=== PATIENT | male | born 1960 | race Caucasian/White ===

== ENCOUNTER 2018-04-01 14:32 | Inpatient (IN) | payer BC ==
[2018-04-01] MEDS ORDERED: NA CHLORIDE 0.9% 2,000 ML ONE (15:07)
[2018-04-01] MEDS ORDERED: ACETAMINOPHEN 500 MG TAB ONE (15:07)
[2018-04-01] MEDS ORDERED: CEFTRIAXONE/SWI 1gm 1 GM/10 ML SYR ONE (15:07)
[2018-04-01] MEDS ORDERED: DIAZEPAM 10 MG/2 ML INJ SYRINGE ONE ×2 (15:09→16:59)
[2018-04-01 15:41] LABS: Absolute Lymphocytes (CBC) 0.9 K/uL (0.7-4.9); Absolute Monocytes 1.3 K/uL (0.1-1.3); Absolute Neutrophil 12.3 K/uL (1.8-8.0); Basophils % 0.7 % (0-1.3); Lymphocytes % 6.1 % (15.3-44.8); MCH 31.8 pg (27.0-35.0); MCV 93.2 fL (80-100); MPV 9.7 fL (7.6-11.3); RBC Red Blood Cell Count 4.61 M/uL (4.33-5.43)
[2018-04-01 15:43] LABS: Protime INR 1.08
[2018-04-01 16:34] LABS: ALT/SGPT 49 U/L (12-78); AST/SGOT 46 U/L (15-37); Alkaline Phosphatase 67 U/L (45-117); BUN Blood Urea Nitrogen 8 mg/dL (7-18); Bicarbonate 22 mmol/L (21-32); Bilirubin Direct 0.1 mg/dL (0-0.2); Bilirubin Total 0.5 mg/dL (0.2-1.0); Glucose Level 121 mg/dL (74-106); Magnesium 1.8 mg/dL (1.8-2.4); NT PRO-BNP 40 pg/mL (<125); Protein, Total 8.1 g/dL (6.4-8.2); Sodium Level 130 mmol/L (136-145); Troponin (Emerg Dept Use Only) < 0.02 ng/mL (0.0-0.045)
--- NOTE | 2018-04-01 16:37 | RAD REPORT ---
EXAM DESCRIPTION: RAD - Chest Single View - 04/01/2018 4:31 pm CLINICAL HISTORY: COUGH Chest pain. COMPARISON: CHEST SINGLE VIEW dated 02/15/2015 FINDINGS: Portable technique limits examination quality. The lungs are grossly clear. The heart is normal in size. No displaced fractures. IMPRESSION: No acute intrathoracic process suspected.
--- NOTE | 2018-04-01 17:09 | ER ---
Nurse's Notes [facility] Name: Raffi Tellez Age: 57 yrs Sex: Male : 1960 Arrival Date: 04/01/2018 Time: 14:39 Bed 6 Private MD: Diagnosis: Alcohol dependence with withdrawal, uncomplicated Presentation: 04/01 14:41 Presenting complaint: Patient states: I was at the [employer] game in [place] and started jl7 feeling real tired and just bad. My head started hurting real bad. I've been feeling bad for 3 days now. Denies chest pain, denies SOB. Transition of care: patient was not received from another setting of care. Onset of symptoms was March 29, 2018. Risk Assessment: Do you want to hurt yourself or someone else? Patient reports no desire to harm self or others. Initial Sepsis Screen: Does the patient meet any 2 criteria? RR > 20 per min. Temp <36.0*C (96.8*F)) or > 38.3*C (100.9*F). HR > 90 bpm. Yes Does the patient have a suspected source of infection? No. Patient's initial sepsis screen is negative. Care prior to arrival: None. 14:41 Method Of Arrival: Ambulatory [facility] 14:41 Acuity: CALI 3 jl7 Triage Assessment: 14:48 General: Appears uncomfortable, ill, Behavior is calm, cooperative, appropriate for [facility] age. Pain: Denies pain. EENT: No signs and/or symptoms were reported regarding the EENT system. Neuro: Level of Consciousness is awake, alert, obeys commands, Oriented to person, place, time, situation. Cardiovascular: Heart tones S1 S2 present Patient's skin is warm and dry. Rhythm is sinus tachycardia. Respiratory: Airway is patent Respiratory effort is even, unlabored, Respiratory pattern is symmetrical, tachypnea Breath sounds are clear bilaterally. Denies shortness of breath. GI: Abdomen is round non-distended, Reports nausea, Patient currently denies diarrhea, vomiting. : No signs and/or symptoms were reported regarding the genitourinary system. Derm: Skin is dry, Skin is normal, Skin temperature is hot. Musculoskeletal: No signs and/or symptoms reported regarding the musculoskeletal system. Historical: - Allergies: 14:48 PENICILLINS; jl7 - Home Meds: 14:48 losartan oral oral [Active]; jl7 - PMHx: 14:48 Hypertension; jl7 - Immunization history:: Adult Immunizations not up to date. - Social history:: Smoking status: Patient/guardian denies using tobacco, Patient uses alcohol, on a daily basis. admits to "couple of beers" a day. Patient/guardian denies using alcohol, street drugs, The patient lives with family. - Ebola Screening: : No symptoms or risks identified at this time. - Family history:: not pertinent. Screenin:00 Abuse screen: Denies threats or abuse. Denies injuries from another. Nutritional jl7 screening: No deficits noted. Tuberculosis screening: No symptoms or risk factors identified. Fall Risk IV access (20 points). Total Simms Fall Scale indicates No Risk (0-24 pts). Assessment: 15:00 General: See triage assessment. jl7 16:00 Reassessment: No changes from previously documented assessment. Patient and/or family jl7 updated on plan of care and expected duration. Pain level reassessed. Patient is alert, oriented x 3, equal unlabored respirations, skin warm/dry/pink. 17:00 Reassessment: Patient and/or family updated on plan of care and expected duration. Pain jl7 level reassessed. Patient is alert, oriented x 3, equal unlabored respirations, skin warm/dry/pink. Patient states feeling better. Vital Signs: 14:48 BP 157 / 84; Pulse 145; Resp 22 S; Temp 103.2(O); Pulse Ox 100% on R/A; Weight 113.4 kg jl7 (R); Height 5 ft. 9 in. (175.26 cm) (R); 16:00 BP 160 / 79; Pulse 130; Resp 16 S; Pulse Ox 96% on R/A; jl7 17:15 BP 141 / 82; Pulse 128; Resp 18 S; Pulse Ox 100% on R/A; jl7 17:40 BP 139 / 80; Pulse 127; Resp 18 S; Temp 101(O); Pulse Ox 100% on R/A; jl7 14:48 Body Mass Index 36.92 (113.40 kg, 175.26 cm) jl7 ED Course: 14:35 First set of blood cultures drawn by me. jb1 14:39 Patient arrived in ED. iw 14:40 Rosi Orlando MD is Attending Physician. ma2 14:41 Amy Del Rio RN is Primary Nurse. jl7 14:47 Triage completed. jl7 14:48 Arm band placed on right wrist. jl7 14:50 Second set of blood cultures drawn by me. jb1 14:56 EKG done, by ED staff, reviewed by Rosi Orlando MD. Initial lab(s) drawn, by me. jb1 Inserted saline lock: 20 gauge in right antecubital area, using aseptic technique. Blood collected. Inserted saline lock: 22 gauge in left antecubital area, using aseptic technique. 15:00 Patient has correct armband on for positive identification. Placed in gown. Bed in low jl7 position. Call light in reach. Side rails up X 1. air sampling and monitoring on. Pulse ox on. NIBP on. 16:27 X-ray completed. Portable x-ray completed in exam room. Patient tolerated procedure la2 well. 16:31 XRAY Chest (1 view) In Process Unspecified. EDMS 17:05 Inserted saline lock: 20 gauge in right hand, using aseptic technique. jl7 17:08 Leona Le MD is Hospitalizing Provider. ma2 17:21 Flu and/or RSV swab sent to lab. jb1 18:48 No provider procedures requiring assistance completed. Patient admitted, IV remains in jl7 place. intact, No redness/swelling at site. Administered Medications: 15:03 Drug: Rocephin 1 grams Route: IV; Rate: calculated rate; Site: right antecubital; jl7 15:06 Follow up: Response: No adverse reaction; IV Status: Completed infusion jl7 15:05 Drug: NS 0.9% 1000 ml Route: IV; Rate: 1 bolus; Site: right antecubital; jl7 16:30 Follow up: IV Status: Completed infusion jl7 15:08 Drug: Valium 2 mg Route: IVP; Site: right antecubital; jl7 15:30 Follow up: Response: No adverse reaction; No change in condition jl7 15:15 Drug: NS 0.9% 1000 ml Route: IV; Rate: 1 bolus; Site: right antecubital; jl7 16:30 Follow up: IV Status: Completed infusion jl7 17:05 Drug: Valium 10 mg Route: IVP; Site: right hand; 7 17:30 Follow up: Response: No adverse reaction jl7 Outcome: 17:09 Decision to Hospitalize by Provider. alyssa 18:48 Admitted to Tele accompanied by tech, via wheelchair, room 402, with chart, Report jl7 called to HOANG Lewis 18:48 Condition: stable 18:48 Discharge instructions given to patient, Instructed on the need for admit, Demonstrated understanding of instructions. 18:49 Patient left the ED. jl7 Signatures: Dispatcher [employer] Daniel Rodriguez jb1 Magdalena Briscoe RN RN iw Leal, Jahala, RN RN jl7 Brynn Ca Mohammad, MD MD oh2
--- NOTE | 2018-04-01 17:09 | EDPHYS ---
Physician Documentation [facility] Name: Raffi Tellez Age: 57 yrs Sex: Male : 1960 Arrival Date: 04/01/2018 Time: 14:39 Bed 6 Private MD: ED Physician Rosi Orlando HPI: 04/01 17:03 This 57 yrs old Male presents to ER via Ambulatory with complaints of ma2 tachycardia feels fatigue. 17:03 decided to cut down his drinking 2 weeks ago, used to drink daily hard liquor and > 10 ma2 beers, decided to cut down after he had cardiac workup for chest pain 2 weeks ago, workup was negative and no chest pain since then. for the last few days he feels tired and fatigued, has no other symptoms . Onset: The symptoms/episode began/occurred gradually, 3 day(s) ago. Severity of symptoms: At their worst the symptoms were moderate in the emergency department the symptoms are unchanged. The patient has experienced a previous episode. Historical: - Allergies: 14:48 PENICILLINS; jl7 - Home Meds: 14:48 losartan oral oral [Active]; jl7 - PMHx: 14:48 Hypertension; jl7 - Immunization history:: Adult Immunizations not up to date. - Social history:: Smoking status: Patient/guardian denies using tobacco, Patient uses alcohol, on a daily basis. admits to "couple of beers" a day. Patient/guardian denies using alcohol, street drugs, The patient lives with family. - Ebola Screening: : No symptoms or risks identified at this time. - Family history:: not pertinent. ROS: 17:03 Cardiovascular: Negative for chest pain, palpitations, and edema, Respiratory: Negative ma2 for shortness of breath, cough, wheezing, and pleuritic chest pain, Abdomen/GI: Negative for abdominal pain, nausea, diarrhea, and constipation, Back: Negative for injury and pain, MS/Extremity: Negative for injury and deformity, Skin: Negative for injury, rash, and discoloration, Neuro: Negative for headache, weakness, numbness, tingling, and seizure, Psych: Negative for depression, anxiety, suicide ideation, homicidal ideation, and hallucinations, Endocrine: Negative for neck swelling, polydipsia, polyuria, polyphagia, and marked weight changes. 17:03 Constitutional: Positive for fatigue, malaise, Negative for body aches, chills, fever. 17:03 All other systems are negative. ma2 Exam: 17:03 Constitutional: This is a well developed, well nourished patient who is awake, alert, ma2 and in no acute distress. Eyes: Pupils equal round and reactive to light, extra-ocular motions intact. Lids and lashes normal. Conjunctiva and sclera are non-icteric and not injected. Cornea within normal limits. Periorbital areas with no swelling, redness, or edema. ENT: Nares patent. No nasal discharge, no septal abnormalities noted. Tympanic membranes are normal and external auditory canals are clear. Oropharynx with no redness, swelling, or masses, exudates, or evidence of obstruction, uvula midline. Mucous membranes moist. Neck: Trachea midline, no thyromegaly or masses palpated, and no cervical lymphadenopathy. Supple, full range of motion without nuchal rigidity, or vertebral point tenderness. No Meningismus. Chest/axilla: Normal chest wall appearance and motion. Nontender with no deformity. No lesions are appreciated. Cardiovascular: Regular rate and rhythm with a normal S1 and S2. No gallops, murmurs, or rubs. Normal PMI, no JVD. No pulse deficits. Respiratory: Lungs have equal breath sounds bilaterally, clear to auscultation and percussion. No rales, rhonchi or wheezes noted. No increased work of breathing, no retractions or nasal flaring. Abdomen/GI: Soft, non-tender, with normal bowel sounds. No distension or tympany. No guarding or rebound. No evidence of tenderness throughout. 17:03 Neuro: Orientation: is normal, to person, place, time \\T\\ situation. Mentation: is normal, Cerebellar function: is grossly normal, Sensation: is normal, + resting tremors, . Vital Signs: 14:48 BP 157 / 84; Pulse 145; Resp 22 S; Temp 103.2(O); Pulse Ox 100% on R/A; Weight 113.4 kg jl7 (R); Height 5 ft. 9 in. (175.26 cm) (R); 16:00 BP 160 / 79; Pulse 130; Resp 16 S; Pulse Ox 96% on R/A; jl7 17:15 BP 141 / 82; Pulse 128; Resp 18 S; Pulse Ox 100% on R/A; jl7 17:40 BP 139 / 80; Pulse 127; Resp 18 S; Temp 101(O); Pulse Ox 100% on R/A; jl7 14:48 Body Mass Index 36.92 (113.40 kg, 175.26 cm) jl7 MDM: 14:40 Patient medically screened. ma2 17:03 Differential Diagnosis sepsis, flu, alcohol withdrawal is likely per history and he ma2 improved with valium and IVF, his WBC is 15K however CXR and lab wnl otherwise . Data reviewed: vital signs, nurses notes, [facility] records, lab test result(s), radiologic studies. Counseling: I had a detailed discussion with the patient and/or guardian regarding: the historical points, exam findings, and any diagnostic results supporting the discharge/admit diagnosis, the presence of at least one elevated blood pressure reading (>120/80) during this emergency department visit, radiology results, the need for further work-up and treatment in the hospital. Response to treatment: the patient's symptoms have mildly improved after treatment. ED course: Discussed with Dr. Le. 04/01 14:54 Order name: Basic Metabolic Panel pa2 04/01 14:54 Order name: CBC with Diff pa2 04/01 14:54 Order name: LFT's pa2 04/01 14:54 Order name: Magnesium pa2 04/01 14:54 Order name: NT PRO-BNP pa2 04/01 14:54 Order name: PT-INR [facility] 04/01 14:54 Order name: Troponin (emerg Dept Use Only) [facility] 04/01 14:54 Order name: Lactate; Complete Time: 16:03 pa2 04/01 15:14 Order name: Basic Metabolic Panel; Complete Time: 16:48 EDMS 04/01 15:14 Order name: CBC with Automated Diff; Complete Time: 16:03 EDMS 04/01 15:14 Order name: Liver (Hepatic) Function; Complete Time: 16:48 EDMS 04/01 15:14 Order name: Magnesium; Complete Time: 16:48 EDMS 04/01 15:14 Order name: NT PRO-BNP; Complete Time: 16:48 EDMS 04/01 15:14 Order name: Protime (+INR); Complete Time: 16:03 EDMS 04/01 14:54 Order name: XRAY Chest (1 view); Complete Time: 16:48 ma2 04/01 14:54 Order name: EKG; Complete Time: 15:14 ma2 04/01 14:54 Order name: Cardiac monitoring; Complete Time: 14:58 ma2 04/01 14:54 Order name: EKG - Nurse/Tech; Complete Time: 14:58 ma2 04/01 14:54 Order name: IV Saline Lock; Complete Time: 14:58 ma2 04/01 14:54 Order name: Labs collected and sent; Complete Time: 14:58 ma2 04/01 14:54 Order name: O2 Per Protocol; Complete Time: 14:58 ma2 04/01 14:54 Order name: O2 Sat Monitoring; Complete Time: 14:58 ma2 04/01 15:14 Order name: Troponin (Emerg Dept Use Only); Complete Time: 16:48 EDMS 04/01 17:13 Order name: Flu jl7 Administered Medications: 15:03 Drug: Rocephin 1 grams Route: IV; Rate: calculated rate; Site: right antecubital; jl7 15:06 Follow up: Response: No adverse reaction; IV Status: Completed infusion jl7 15:05 Drug: NS 0.9% 1000 ml Route: IV; Rate: 1 bolus; Site: right antecubital; jl7 16:30 Follow up: IV Status: Completed infusion jl7 15:08 Drug: Valium 2 mg Route: IVP; Site: right antecubital; jl7 15:30 Follow up: Response: No adverse reaction; No change in condition jl7 15:15 Drug: NS 0.9% 1000 ml Route: IV; Rate: 1 bolus; Site: right antecubital; jl7 16:30 Follow up: IV Status: Completed infusion jl7 17:05 Drug: Valium 10 mg Route: IVP; Site: right hand; jl7 17:30 Follow up: Response: No adverse reaction jl7 Disposition: 04/01/18 17:09 Hospitalization ordered by Leona Le for Inpatient Admission. Preliminary diagnosis is Alcohol dependence with withdrawal, uncomplicated. - Bed requested for Telemetry/MedSurg (Inpatient). - Status is Inpatient Admission. jl7 - Condition is Stable. - Problem is new. - Symptoms have improved. UTI on Admission? No Signatures: Dispatcher [employer] EDCarlota Freed RN RN dw Amy Del Rio RN RN jl7 Rosi Orlando MD MD ma2 Corrections: (The following items were deleted from the chart) 17:41 17:09 Hospitalization Ordered by Leona Le MD for Inpatient Admission. Preliminary dw diagnosis is Alcohol dependence with withdrawal, uncomplicated. Bed requested for Telemetry/MedSurg (Inpatient). Status is Inpatient Admission. Condition is Stable. Problem is new. Symptoms have improved. UTI on Admission? No. ma2 18:49 17:41 04/01/2018 17:09 Hospitalization Ordered by Leona Le MD for Inpatient jl7 Admission. Preliminary diagnosis is Alcohol dependence with withdrawal, uncomplicated. Bed requested for Telemetry/MedSurg (Inpatient). Status is Inpatient Admission. Condition is Stable. Problem is new. Symptoms have improved. UTI on Admission? No. dw
[2018-04-01] MEDS ORDERED: FLUMAZENIL 0.1 MG/ML (5 mL VIAL) IV PRN (18:49)
[2018-04-01] MEDS ORDERED: LORazepam 2 MG/ML VIAL IV PRN ×3 (18:49→20:37)
[2018-04-01] MEDS ORDERED: ONDANSETRON 4 MG/2 ML VIAL IV PRN (18:49)
[2018-04-01] MEDS ORDERED: LORazepam 2 MG/ML VIAL IV SCH (19:00)
[2018-04-01 19:31] LABS: Magnesium 1.7 mg/dL (1.8-2.4); Phosphorus 3.4 mg/dL (2.5-4.9)
[2018-04-01] MEDS: FOLIC ACID 1 MG, MULTIVITAMINS INJ 10 ML, THIAMINE HCL 100 MG in NA CHLORIDE 0.9% 1,000 ML IV SCH (20:00)
[2018-04-01] MEDS ORDERED: MAGNESIUM SULFATE 1 gm IVPB 1 GM/100 ML BAG IV ONE (21:00)
[2018-04-01] MEDS ORDERED: THIAMINE 200 MG/2 ML INJ ONE (21:25)
[2018-04-01] MEDS ORDERED: ACETAMINOPHEN 500 MG TAB PO ONE (21:28)
[2018-04-01] MEDS ORDERED: MULTIVITAMINS 10 ML VIAL (INJ) IV ONE (21:41)
[2018-04-01] MEDS ORDERED: FOLIC ACID 5 MG/ML VIAL ONE (21:42)
[2018-04-01] MEDS ORDERED: NA CHLORIDE 0.9% 1,000 ML ONE (21:52)
[2018-04-01 22:34] LABS: Urine Appearance CLEAR; Urine Bilirubin NEGATIVE (NEG); Urine Blood 1+ (NEG); Urine Color YELLOW; Urine Glucose NEGATIVE (NEG); Urine Protein NEGATIVE (NEG); Urine Urobilinogen 0.2 mg/dL (0.2-1.0); Urine pH 7.5 (5.0-7.0)
[2018-04-01 22:41] LABS: Urine Microscopic Reflex ORDER UMIC
[2018-04-01 23:22] LABS: Urine Bacteria <20 /HPF (NONE SEEN); Urine Culture Reflex Order NOT NEEDED; Urine RBC <5 /HPF (NONE SEEN)
[2018-04-02 04:04] LABS: Absolute Lymphocytes (CBC) 0.6 K/uL (0.7-4.9); Absolute Monocytes 0.9 K/uL (0.1-1.3); Basophils % 0.5 % (0-1.3); Eosinophils % 0.1 % (0-4.4); Hematocrit 43.3 % (39.6-49.0); Lymphocytes % 6.1 % (15.3-44.8); MCH 32.5 pg (27.0-35.0); MCV 93.3 fL (80-100); MPV 8.9 fL (7.6-11.3); Monocytes % 8.9 % (3.3-12.3); RBC Red Blood Cell Count 4.64 M/uL (4.33-5.43)
[2018-04-02 04:21] LABS: Albumin 3.5 g/dL (3.4-5.0); Bilirubin Total 0.7 mg/dL (0.2-1.0); Potassium 4.3 mmol/L (3.5-5.1); Protein, Total 7.6 g/dL (6.4-8.2)
[2018-04-02] MEDS ORDERED: DIPHENHYDRAMINE 25 MG TAB/CAP PO ONE ×2 (05:05→05:33)
[2018-04-02] MEDS ORDERED: HYDROCORTISONE SUC 100 MG INJ IV ONE (05:05)
[2018-04-02] MEDS ORDERED: VANCOMYCIN 2 GM in NA CHLORIDE 0.9% 500 ML IVPB ONE (06:00)
[2018-04-02] MEDS ORDERED: VANCOMYCIN 1.25 GM in NA CHLORIDE 0.9% 250 ML IVPB ONE (06:00)
[2018-04-02] MEDS ORDERED: VANCOMYCIN 1 GM/VIAL ONE (06:03)
[2018-04-02] MEDS ORDERED: NA CHLORIDE 0.9% 500 ML ONE (06:20)
[2018-04-02] MEDS: ENOXAPARIN 40 MG/0.4 ML SQ SCH (08:39)
--- NOTE | 2018-04-02 08:53 | P.HP ---
Certification for Inpatient Patient admitted to: Inpatient With expected LOS: >2 Midnights Patient will require the following post-hospital care: None Practitioner: I am a practitioner with admitting privileges, knowledge of patient current condition, hospital course, and medical plan of care. Services: Services provided to patient in accordance with Admission requirements found in Title 42 Section 412.3 of the Code of Federal Regulations Patient History Date of Service: 04/01/18 Reason for admission: Fever History of Present Illness: Patient is a 57-year-old gentleman who was at the [employer] football game today. He had been tail-getting and was drinking with his friends. He had a little bit more to drink than normal. He was not feeling well by the time he came back and he states that he was nauseated. He did not have any vomiting or diarrhea. He brought himself into the emergency room because he was having fevers and chills and was not feeling well. He did have a headache and some neck stiffness. He felt a little off as well. In the emergency room his workup did not reveal any abnormality-at this time he has not had a lumbar puncture. He was hyponatremic, as well as being febrile. He was admitted to the hospital for observation Allergies Penicillins Allergy (Verified 04/01/18 20:00) Itching/Hives/Rash Home Medications: Losartan Potassium 100 mg PO DAILY 04/01/18 - Past Medical/Surgical History Has patient received pneumonia vaccine in the past: No Diabetic: No -: HTN Past Surgical History: Patient denies surgical history - Family History Father Family History: Reviewed- Non-Contributory - Social History Smoking Status: Never smoker Alcohol use: Yes CD- Drugs: No Caffeine use: Yes Place of Residence: Home Review of Systems 10-point ROS is otherwise unremarkable Physical Examination - Vital Signs Temperature: 100.1 F Blood Pressure: 125/76 Pulse: 106 Respirations: 20 Pulse Ox (%): 92 - Physical Exam General: Alert, In no apparent distress, Oriented x3 HEENT: Atraumatic, PERRLA, Mucous membr. moist/pink, EOMI, Sclerae nonicteric Neck: Supple, 2+ carotid pulse no bruit, No LAD, Without JVD or thyroid abnormality Respiratory: Clear to auscultation bilaterally, Normal air movement Cardiovascular: Regular rate/rhythm, Normal S1 S2, No murmurs Gastrointestinal: Normal bowel sounds, Soft and benign, Non-distended, No tenderness Musculoskeletal: No clubbing, No swelling, No tenderness Integumentary: No rashes Neurological: Normal gait, Normal speech, Normal strength at 5/5 x4 extr, Normal tone, Sensation intact, Cranial nerves 3-12 intact, Normal affect Lymphatics: No axilla or inguinal lymphadenopathy - Studies Laboratory Data (last 24 hrs) 04/01/18 14:50: PT 12.8 H, INR 1.08 04/01/18 14:50: WBC 14.8 H, Hgb 14.7, Hct 43.0, Plt Count 213 04/01/18 14:50: Sodium 130 L, Potassium 4.0, BUN 8, Creatinine 0.90, Glucose 121 H, Magnesium 1.8, Total Bilirubin 0.5, AST 46 H, ALT 49, Alkaline Phosphatase 67 Assessment & Plan - Problems (Diagnosis) (1) Fever Current Visit: Yes Status: Acute (2) Alcohol use Current Visit: Yes Status: Acute (3) Headache Current Visit: Yes Status: Acute - Plan Plan: 1. Supportive care with IV hydration and antipyretics 2. Blood culture x 2 3. If fevers continue then we may need to do a lumbar puncture 4. Will give a dose of IV antibiotics after cultures completed 5. Anticipate discharge home in the morning Discharge Plan: Home Plan to discharge in: 24 Hours - Advance Directives Does patient have a Living Will: No Does patient have a Durable POA for Healthcare: No - Code Status/Comfort Care Code Status Assessed: Yes Code Status: Full Code Critical Care: No Time Spent Managing PTS Care (In Minutes): 50
[2018-04-02] MEDS ORDERED: MULTIVITAMIN TAB PO SCH (09:00)
[2018-04-02] MEDS ORDERED: THIAMINE HCL 100 MG TABLET PO SCH (09:00)
[2018-04-02] MEDS ORDERED: INFLUENZA VACCINE (for 3y+) 0.5 ML DOSE IMVAC ONE (09:00)
[2018-04-02] MEDS ORDERED: FOLIC ACID 1 MG TABLET PO SCH (09:00)
--- NOTE | 2018-04-02 10:06 | EKG ---
Test Date: 2018-04-01 Test Time: 14:39:44 Director Government: [place] MEASUREMENT RESULTS: Intervals: Rate: 140 [place]: 140 QRSD: 96 QT: 284 QTc: 433 [place]: P: 60 [place]: 140 QRS: -30 T: 35 INTERPRETIVE STATEMENTS: Sinus tachycardia Left axis deviation Septal infarct, age undetermined Abnormal ECG No previous ECG available for comparison Electronically Signed On 04-02-18 10:05:48 CDT by Mario Ferguson
[2018-04-02] MEDS: FOLIC ACID 1 MG, MULTIVITAMINS INJ 10 ML, THIAMINE HCL 100 MG in NA CHLORIDE 0.9% 1,000 ML IV SCH (10:21)
[2018-04-02] MEDS ORDERED: ACETAMINOPHEN 500 MG TAB PO PRN (10:44)
--- NOTE | 2018-04-02 12:04 | P.PN ---
Subjective Date of Service: 04/02/18 Chief Complaint: Fever Patient seen and examined at bedside. No family at bedside. per patient, he has been feeling weak since monday and was at a [employer] game yesterday where he had about 6 beers and 1 shot of liliquor and started feeling worse and had a headache so he came into the hospital. 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 He denies any other complaints other than fever and feeling weak. Denies any skin cuts, bites that he is aware of, chest pain, shortness of breath. He was given IVF, antipyretics and blood cultures were drawn. Overnight, he had a Tm of 101.6 though reports feeling a little better. Review of Systems 10-point ROS is otherwise unremarkable General: Fever, Weakness, As per HPI Physical Examination - Vital Signs Temperature: 99 F Blood Pressure: 125/76 Pulse: 106 Respirations: 20 Pulse Ox (%): 92 - Physical Exam General: Alert, In no apparent distress, Oriented x3 HEENT: Atraumatic, PERRLA, EOMI Neck: Supple, JVD not distended Respiratory: Clear to auscultation bilaterally, Normal air movement Cardiovascular: Regular rate/rhythm, Normal S1 S2 Gastrointestinal: Normal bowel sounds, Soft and benign, Non-distended, No tenderness Musculoskeletal: No clubbing, No swelling, No tenderness Integumentary: No rashes, No breakdown, No significant lesion, No tenderness/ swelling, No erythema, No warmth Neurological: Normal speech, Normal tone, Normal affect Lymphatics: No axilla or inguinal lymphadenopathy External genitalia: No edema, No lesions - Studies Laboratory Data (last 24 hrs) 04/01/18 14:50: PT 12.8 H, INR 1.08 04/01/18 14:50: WBC 14.8 H, Hgb 14.7, Hct 43.0, Plt Count 213 04/01/18 14:50: Sodium 130 L, Potassium 4.0, BUN 8, Creatinine 0.90, Glucose 121 H, Magnesium 1.8, Total Bilirubin 0.5, AST 46 H, ALT 49, Alkaline Phosphatase 67 Assessment And Plan - Current Problems (Diagnosis) (1) Fever Onset Date: 04/02/18 Current Visit: Yes Plan: Fever of unknown origin: Denies any recent travel, and drug usage, bites/cuts, or any other symptoms. Tm of 101.6 overnight, no leukocytosis. Blood cultures pending Continue antipyretics Pending ECHO to eval carditis CPK, CKMB, trops pending. Negative x 1 (2) Alcohol use Onset Date: 04/02/18 Current Visit: Yes Status: Acute Plan: Educate patient on alcohol cessation. Continue DT prophylaxis protocol though doubt patient was in withdrawal. (3) Headache Onset Date: 04/02/18 Current Visit: Yes Status: Acute Plan: Improved. Will continue antipyretics. If headache worsens or continues, he may need an LP to eval further for infections. Discharge Plan: Home Plan to discharge in: 24 Hours (if ECHO/labs negative and symptomatic improvement.)
[2018-04-02 12:19] LABS: CKMB Creatine Kinase MB 1.2 ng/mL (0.3-3.6)
[2018-04-02] MEDS: PANTOPRAZOLE 40MG TABLET PO SCH (21:54)
[2018-04-03 05:47] LABS: Absolute Lymphocytes (CBC) 1.3 K/uL (0.7-4.9); Absolute Monocytes 1.2 K/uL (0.1-1.3); Absolute Neutrophil 4.7 K/uL (1.8-8.0); Basophils % 0.8 % (0-1.3); Eosinophils % 1.3 % (0-4.4); Hematocrit 41.7 % (39.6-49.0); MCV 94.8 fL (80-100); MPV 9.4 fL (7.6-11.3); Monocytes % 16.9 % (3.3-12.3); RBC Red Blood Cell Count 4.39 M/uL (4.33-5.43)
[2018-04-03] MEDS: PANTOPRAZOLE 40MG TABLET PO SCH (06:19)
[2018-04-03 07:12] LABS: Blood Morphology Comment NOT SEEN (NOT SEEN); Platelet Estimate ADEQ; Urine White Blood Cell Casts OK
[2018-04-03 07:13] LABS: Polychromasia SLIGHT
[2018-04-03 08:22] LABS: Albumin 3.2 g/dL (3.4-5.0); Bilirubin Total 0.5 mg/dL (0.2-1.0); Phosphorus 2.3 mg/dL (2.5-4.9); Protein, Total 7.3 g/dL (6.4-8.2)
[2018-04-03] MEDS: ENOXAPARIN 40 MG/0.4 ML SQ SCH (08:37)
[2018-04-03] MEDS ORDERED: LOSARTAN POTASSIUM 50 MG TABLET PO SCH (09:00)
[2018-04-03] MEDS: FOLIC ACID 1 MG, MULTIVITAMINS INJ 10 ML, THIAMINE HCL 100 MG in NA CHLORIDE 0.9% 1,000 ML IV SCH (10:02)
[2018-04-03] MEDS ORDERED: POTASS/SODIUM PHOSPHATE 1 PKT POWD.PACK PO ONE (11:07)
--- NOTE | 2018-04-03 11:27 | P.DS ---
Admission Date: 04/01/18 Discharge Date: 04/03/18 Primary Care Provider: Dr. Pimentel Disposition: ROUTINE DISCHARGE Discharge Condition: GOOD Reason for Admission: Fever - Problems (1) Fever Onset Date: 04/02/18 Current Visit: Yes (2) Alcohol use Onset Date: 04/02/18 Current Visit: Yes Status: Acute (3) Headache Onset Date: 04/02/18 Current Visit: Yes Status: Acute Brief History of Present Illness: Patient is a 57-year-old gentleman who was at the [employer] football game today. He had been tail-getting and was drinking with his friends. He had a little bit more to drink than normal. He was not feeling well by the time he came back and he states that he was nauseated. He did not have any vomiting or diarrhea. He brought himself into the emergency room because he was having fevers and chills and was not feeling well. He did have a headache and some neck stiffness. He felt a little off as well. In the emergency room his workup did not reveal any abnormality-at this time he has not had a lumbar puncture. He was hyponatremic, as well as being febrile. He was admitted to the hospital for observation Hospital Course: The patient was admitted. He was given supportive care with IV hydration and antipyretics for his fever. Blood cultures were drawn. Which remained negative throughout his stay. 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 At the time of discharge, patient has been afebrile for 24 hr and states that his headache has completely resolved. His labs to look stable. the with an echo was ordered. Vital Signs/Physical Exam: Temp Pulse Resp BP Pulse Ox 98.4 F 85 18 131/74 95 04/03/18 08:00 04/03/18 08:00 04/03/18 08:00 04/03/18 08:00 04/03/18 08:00 General: Alert, In no apparent distress HEENT: Atraumatic, PERRLA, EOMI Neck: Supple, JVD not distended Respiratory: Clear to auscultation bilaterally, Normal air movement Cardiovascular: Regular rate/rhythm, Normal S1 S2 Gastrointestinal: Normal bowel sounds, No tenderness Musculoskeletal: No tenderness Integumentary: No rashes Neurological: Normal speech, Normal tone, Normal affect Lymphatics: No axilla or inguinal lymphadenopathy Laboratory Data at Discharge: WBC 7.4 K/uL (4.3-10.9) D 04/03/18 04:39 Hgb 14.1 g/dL (13.6-17.9) 04/03/18 04:39 Hct 41.7 % (39.6-49.0) 04/03/18 04:39 Plt Count 166 K/uL (152-406) 04/03/18 04:39 PT 12.8 SECONDS (9.5-12.5) H 04/01/18 14:50 INR 1.08 04/01/18 14:50 Sodium 138 mmol/L (136-145) 04/03/18 04:39 Potassium 4.0 mmol/L (3.5-5.1) 04/03/18 04:39 BUN 11 mg/dL (7-18) 04/03/18 04:39 Creatinine 1.00 mg/dL (0.55-1.3) 04/03/18 04:39 Glucose 113 mg/dL (74-106) H 04/03/18 04:39 Phosphorus 2.3 mg/dL (2.5-4.9) L 04/03/18 04:39 Magnesium 2.2 mg/dL (1.8-2.4) D 04/02/18 03:42 Total Bilirubin 0.5 mg/dL (0.2-1.0) 04/03/18 04:39 AST 35 U/L (15-37) 04/03/18 04:39 ALT 35 U/L (12-78) 04/03/18 04:39 Alkaline Phosphatase 49 U/L (45-117) 04/03/18 04:39 Home Medications: Losartan Potassium 100 mg PO DAILY 04/01/18 Patient Discharge Instructions: Please follow up with her primary care physician in the next 1 week. Diet: Regular Activity: Ad awilda Time spent managing pt's care (in minutes): 35
[2018-04-03] MEDS ORDERED: POTASS/SODIUM PHOSPHATE 1 PKT POWD.PACK PO SCH (12:00)
[2018-04-03 14:02] VITALS: BP 127/89; TEMP 98; O2SAT 97
[2018-04-03 14:05] VITALS: BMI 36.9
[2018-04-03] MEDS ORDERED: LORazepam 2 MG/ML VIAL IV SCH (18:10)
== END 2018-04-03 12:48 | disposition home or self-care (01) | DRG 864 ==
LOC: ER 14:32 → ERHOLD 17:10 → 4TH 18:16
PROVIDERS: ADMIT Family Medicine; ATTEND Family Medicine
DX: R50.9 Fever, unspecified (principal); E87.1 Hypo-osmolality and hyponatremia; Z88.0 Allergy status to penicillin; I10 Essential (primary) hypertension; R51 Headache; Z72.89 Other problems related to lifestyle
CPT/HCPCS: 36415; 71045; 80048; 80053; 80076; 80320; 81003; 81015; 82550; 82553; 83605; 83735; 83880; 84100; 84484; 85025; 85610; 87040; 87804; 93005; 99285; J0696; J1650; J1720; J3360; J3411; J3475; J7030